=== PATIENT | female | born 1995 | race African-American/Black ===

== ENCOUNTER 2019-05-15 21:42 | Emergency (ER) | payer OTHER ==
[~2019-05-15] VITALS: Ht 175.3 cm; Wt 70.3 kg
[2019-05-15] MEDS ORDERED: SERT100T PO (22:02)
[2019-05-15] MEDS ORDERED: wellbutrin (22:02)
--- NOTE | 2019-05-15 22:05 | NUR ---
DR. OSEGUERA AT BEDSIDE FOR MSE.
[2019-05-15] MEDS ORDERED: HYDROMORPHONE 1 MG/1 ML DISP.SYRIN ONE (22:09)
[2019-05-15] MEDS ORDERED: ONDANSETRON 4 MG/2 ML VIAL ONE (22:09)
[2019-05-15] MEDS ORDERED: HYDROMORPHONE 1 MG/1 ML DISP.SYRIN IM ONE (22:15)
[2019-05-15] MEDS ORDERED: ONDANSETRON 4 MG/2 ML VIAL IM ONE (22:15)
--- NOTE | 2019-05-15 22:15 | NUR ---
ZOFRAN 4MG AND DILAUDID 1MG GIVEN IM IN RD AND LD.
[2019-05-15 22:18] LABS: BASOPHILS # (AUTO) 0.1 K/uL (0.0-8.0); BASOPHILS % (AUTO) 0.8 % (0.0-2.0); EOSINOPHILS # (AUTO) 0.1 K/uL (0.0-0.7); EOSINOPHILS % (AUTO) 0.8 % (0.0-7.0); HEMATOCRIT 36.7 % (31.2-41.9); HEMOGLOBIN 12.4 g/dL (10.9-14.3); LYMPHOCYTES # (AUTO) 1.9 K/uL (20.0-40.0); LYMPHOCYTES % (AUTO) 14.6 % (20.5-51.5); MEAN CORPUSCULAR HEMOGLOBIN 28.7 uug (24.7-32.8); MEAN CORPUSCULAR HGB CONC 34 g/dL (32.3-35.6); MEAN CORPUSCULAR VOLUME 84.9 fL (75.5-95.3); MONOCYTES # (AUTO) 0.6 K/uL (2.0-10.0); MONOCYTES % (AUTO) 4.4 % (0.0-11.0); NEUTROPHILS # (AUTO) 10.3 K/uL (1.8-8.9); NEUTROPHILS % (AUTO) 79.4 % (38.5-71.5); PLATELET COUNT (AUTO) 325 K/uL (179-408); RED BLOOD CELL COUNT(AUTO) 4.32 MIL/uL (3.63-4.92); WHITE BLOOD COUNT (AUTO) 12.9 K/uL (3.8-11.8)
[2019-05-15] MEDS ORDERED: IV NORMAL SALINE 1000 ML BAG IV ONE (22:30)
--- NOTE | 2019-05-15 22:30 | NUR ---
IV ESTABLISHED IN RIGHT AC #20, BLOOD DRAWN PINK AND RED TUBE.
--- NOTE | 2019-05-15 22:40 | NUR ---
US TECH AT BEDSIDE.
--- NOTE | 2019-05-15 23:30 | NUR ---
PELVIC EXAM DONE BY DR. OSEGUERA WITH SHANNAN SHERIDAN (RIVETING MACHINE OPERATOR AUTOMATIC) STITCHER FEEDER.
--- NOTE | 2019-05-16 | NUR ---
PATIENT'S MOTHER AT BEDSIDE, DEMANDING TO SPEAK WITH CLINICAL RESEARCH PHYSICIAN. FATIMAH CLINICAL RESEARCH PHYSICIAN PAGED.
--- NOTE | 2019-05-16 00:02 | NUR ---
ORDER ADMINISTRATOR AT BEDSIDE SPEAKING WITH PARENT.
--- NOTE | 2019-05-16 01:26 | NUR ---
Patient discharged to home in stable conditon. Written and verbal after care instructions given. COPY OF BLOOD WORK, US REPORT AND US IMAGES PROVIDED. PATIENT LEFT ACCOMPANIED BY PARENTS AND FRIEND.
[2019-05-16 01:29] VITALS: BP 107/69
== END 2019-05-16 01:30 | disposition home or self-care (01) ==
LOC: ER 21:52
DX: N92.0 Excessive and frequent menstruation with regular cycle (principal); F32.9 Major depressive disorder, single episode, unspecified; Z79.899 Other long term (current) drug therapy
CPT/HCPCS: 36415; 76856; 84702; 85025; 86900; 86901; 96372 ×2; 99284; J1170; J2405; A4663; J7030